=== PATIENT | male | born 1970 | race Caucasian/White ===

== ENCOUNTER 2024-07-03 03:44 | Inpatient (IN) | payer OTHER ==
[~2024-07-03] VITALS: Ht 185.4 cm; Wt 81.6 kg
[2024-07-03 03:49] VITALS: TEMP 97.9
[2024-07-03] MEDS: SODIUM CHLORIDE 0.9% 1000ML 1,000 ML IV STA (04:30)
[2024-07-03 04:32] LABS: BASOPHILS % 0.6 % (0.0-1.0); EOSINOPHILS # (AUTO) 0.2 (0.0-0.4); EOSINOPHILS % 2.3 % (0.0-6.0); HEMOGLOBIN 12.8 g/dL (14.0-18.0); LYMPHOCYTES # (AUTO) 1.8 (1.0-3.2); LYMPHOCYTES % 26.5 % (18.0-39.1); MEAN CORPUSCULAR HEMOGLOBIN 28.8 pg (28-32); MEAN CORPUSCULAR VOLUME 89.9 fL (81-99); MONOCYTES % 13.8 % (4.4-11.3); NEUTROPHILS # (AUTO) 3.9 (2.1-6.9); NEUTROPHILS % 56.2 % (38.7-80.0); PLATELET COUNT 280 x10e3/uL (140-360); RED BLOOD COUNT 4.45 x10e6/uL (4.3-5.7); RED CELL DISTRIBUTION WIDTH 13.5 % (11.7-14.4); WHITE BLOOD COUNT 6.87 x10e3/uL (4.8-10.8)
[2024-07-03] MEDS ORDERED: IOPAMIDOL 370 MG/ML 100 ML INFUS..BTL INJ ONE (04:32)
[2024-07-03 04:46] LABS: TROPONIN I 0.052 ng/mL (0-0.300)
[2024-07-03 04:50] LABS: INFLUENZA A AG NEGATIVE (NEGATIVE)
[2024-07-03 04:51] LABS: CORONAVIRUS COVID-19 AG NEGATIVE (NEGATIVE); INFLUENZA B AG NEGATIVE (NEGATIVE)
[2024-07-03 04:52] LABS: ALBUMIN 3.7 g/dL (3.5-5.0); ALBUMIN/GLOBULIN RATIO 0.9 (0.8-2.0); ANION GAP 15.3 mmol/L (8-16); BILIRUBIN,TOTAL 0.8 mg/dL (0.2-1.2); CALCIUM 9.8 mg/dL (8.4-10.2); CREATININE, SERUM 1.34 mg/dL (0.72-1.25); POTASSIUM 4.3 mmol/L (3.5-5.1); TOTAL PROTEIN 7.7 g/dL (6.5-8.1)
[2024-07-03] MEDS ORDERED: Morphine 4mg INJECTION 4 MG/ML INJ IV STA (05:13)
[2024-07-03] MEDS ORDERED: KETOROLAC TROMETHAMINE 30 MG/ML VIAL ONE (05:23)
[2024-07-03] MEDS: KETOROLAC TROMETHAMINE 30 MG/ML VIAL IV STA (05:27)
[2024-07-03] MEDS: ONDANSETRON HCL INJ 2MG/ML 2ML 2 MG/ML VIAL IV STA (05:28)
[2024-07-03 05:30] VITALS: PULSE 108; RESP 24
[2024-07-03] MEDS: LEVOFLOXACIN 750MG/D5W 150ML 150 ML IV SCH (05:37)
[2024-07-03 05:40] LABS: CLARITY,URINE CLEAR (CLEAR); COLOR,URINE YELLOW (YELLOW); GLUCOSE, URINE NEGATIVE (NEGATIVE); KETONES,URINE NEGATIVE (NEGATIVE); LEUKOCYTE ESTERASE ,URINE NEGATIVE (NEGATIVE); NITRITE,URINE NEGATIVE (NEGATIVE); PH,URINE 5.5 (5 - 7); PROTEIN,URINE DIPSTICK 2+ (NEGATIVE)
[2024-07-03 05:41] LABS: OPIATES SCREEN,URINE NEGATIVE (NEGATIVE)
[2024-07-03 05:42] LABS: AMPHETAMINES SCREEN,URINE POSITIVE (NEGATIVE); BENZODIAZEPINES SCREEN,URINE NEGATIVE (NEGATIVE); BILIRUBIN,URINE NEGATIVE (NEGATIVE); CANNABINOIDS SCREEN,URINE NEGATIVE (NEGATIVE); COCAINE SCREEN,URINE NEGATIVE (NEGATIVE); METHADONE SCREEN, URINE NEGATIVE (NEGATIVE); PHENCYCLIDINE SCREEN,URINE NEGATIVE (NEGATIVE); URINE UROBILINOGEN 0.2 mg/dL (0.2 - 1)
[2024-07-03] MEDS ORDERED: Morphine 4mg INJECTION 4 MG/ML INJ IV PRN (06:00)
[2024-07-03] MEDS: SODIUM CHLORIDE 0.9% 1000ML 1,000 ML IV SCH (06:02)
[2024-07-03] MEDS: DIAZEPAM INJ 5 MG/ML 2 ML IV STA (06:02)
[2024-07-03 06:05] LABS: BACTERIA,URINE MODERATE /HPF; EPITHELIAL CELLS,URINE RARE /LPF; RBC,URINE 0-5 /HPF (0-5); WBC,URINE (MAN) 0-5 /HPF (0-5)
[2024-07-03 07:15] VITALS: BP 167/129; PULSE 109; RESP 22; O2SAT 96
[2024-07-03] MEDS ORDERED: ONDANSETRON HCL INJ 2MG/ML 2ML 2 MG/ML VIAL IV PRN (09:13)
[2024-07-03 09:30] VITALS: BP 167/129; PULSE 100; PULSE 109; RESP 22; O2SAT 96
[2024-07-03] MEDS: MAGNESIUM/ALUMINUM/SIMETHICONE 30 ML UDC PO PRN (09:58)
[2024-07-03] MEDS: HYDRALAZINE HCL 20 MG/ML VIAL IV PRN (09:58)
[2024-07-03 12:00] VITALS: BP 163/106; PULSE 98; RESP 22; TEMP 97.5; O2SAT 99
[2024-07-03] MEDS ORDERED: MELATONIN 3 MG TAB PO PRN (12:30)
[2024-07-03] MEDS ORDERED: HYDRALAZINE HCL 20 MG/ML VIAL IV PRN (12:30)
[2024-07-03] MEDS ORDERED: POLYETHYLENE GLYCOL 3350 17 GM PACK PO PRN (12:30)
[2024-07-03] MEDS ORDERED: Morphine 2mg Syringe 2 MG/ML SYR IV PRN (12:30)
[2024-07-03] MEDS ORDERED: ACETAMINOPHEN 325 MG TAB PO PRN (12:30)
[2024-07-03] MEDS: DEXTROSE 5% 1,000 ML IV SCH (12:45)
[2024-07-03] MEDS: GUAIFENESIN/DEXTROMETHORPHAN LIQD 5 ML UDC PO PRN (13:01)
[2024-07-03] MEDS: FUROSEMIDE INJ 10 MG/ML 4 ML VIAL IV ONE (13:01)
[2024-07-03 13:17] LABS: TROPONIN I 0.044 ng/mL (0-0.300)
[2024-07-03 15:59] VITALS: BP 155/103; PULSE 93; RESP 22; TEMP 97.5; O2SAT 97
[2024-07-03] MEDS: TRAMADOL HCL 50 MG TAB PO PRN (16:18)
[2024-07-03] MEDS: PANTOPRAZOLE SOD 40 MG TABEC PO SCH (16:18)
[2024-07-03] MEDS: DOCUSATE SODIUM 100 MG CAP PO SCH (16:18)
[2024-07-03] MEDS ORDERED: MAGNESIUM HYDROXIDE 30 ML UDC PO ONE (18:55)
[2024-07-03] MEDS ORDERED: HYDRALAZINE HCL 25 MG TAB PO SCH (21:00)
[2024-07-04] MEDS ORDERED: CARVEDILOL 12.5 MG TAB PO SCH (09:00)
[2024-07-04] MEDS ORDERED: MULTIVITAMINS/MINERALS TAB PO SCH (09:00)
[2024-07-04] MEDS ORDERED: LOSARTAN POTASSIUM 25 MG TAB PO SCH (09:00)
== END 2024-07-03 19:44 | disposition left against medical advice (07) | DRG 291 ==
LOC: ER 03:50 → ERHOLD 05:49 → MED/SURG3 06:34
PROVIDERS: ADMIT Internal Medicine; ATTEND Internal Medicine
DX: I13.0 Hypertensive heart and chronic kidney disease with heart failure and stage 1 through stage 4 chronic kidney disease, or unspecified chronic kidney disease (principal); I50.23 Acute on chronic systolic (congestive) heart failure; J18.9 Pneumonia, unspecified organism; I16.0 Hypertensive urgency; N18.9 Chronic kidney disease, unspecified; Z53.29 Procedure and treatment not carried out because of patient's decision for other reasons; K59.00 Constipation, unspecified; R10.30 Lower abdominal pain, unspecified; I25.10 Atherosclerotic heart disease of native coronary artery without angina pectoris; K82.8 Other specified diseases of gallbladder; F15.10 Other stimulant abuse, uncomplicated; F19.10 Other psychoactive substance abuse, uncomplicated; R74.8 Abnormal levels of other serum enzymes; I25.2 Old myocardial infarction; Z91.148 Patient's other noncompliance with medication regimen for other reason; Z85.820 Personal history of malignant melanoma of skin
CPT/HCPCS: 36415; 71260; 74177; 80053; 80307; 80320; 81001; 82550; 83605; 83690; 83880; 84484; 85025; 87040; 93005; 99284; J0360; J1885; J1940; J2405; J3360; J7030; J7070; Q9967